=== PATIENT | female | born 1995 | race Two or more races ===

== ENCOUNTER 2016-12-17 17:28 | Emergency (ER) | payer BC ==
[2016-12-17 18:54] LABS: RBC URINE 4 /hpf (0-3); URINE BACTERIA OCC (<OCC); URINE BILIRUBIN NEGATIVE (NEGATIVE); URINE BLOOD NEGATIVE (NEGATIVE); URINE COLOR Yellow (YELLOW); URINE GLUCOSE (UA) NORMAL (Normal); URINE KETONE NEGATIVE (NEGATIVE); URINE LEUKOCYTE ESTERASE 1+ Leu/uL (Negative); URINE PROTEIN NEGATIVE (NEGATIVE); URINE UROBILINOGEN NORMAL mg/dL (0.2-1.0); WBC URINE 10 /hpf (0-5)
--- NOTE | 2016-12-17 19:10 | C.PDOC ---
History Of Present Illness 21 y/o female presents to the ED with complains of vaginal spotting yesterday and lower abdominal cramping today. Pt , LMP sometime in November, , at age 16. Denies fever, chills, vomiting, diarrhea or any other complaints. Time Seen by Provider: 12/17/16 18:00 Chief Complaint (Nursing): Female Genitourinary History Per: Patient History/Exam Limitations: no limitations Onset/Duration Of Symptoms: Hrs Current Symptoms Are (Timing): Still Present Severity: Mild Recent travel outside of the [place]: No Past Medical History Reviewed: Historical Data, Nursing Documentation, Vital Signs Vital Signs: Last Vital Signs Temp 98 F 12/17/16 20: Pulse 72 12/17/16 20:26 Resp 20 12/17/16 20:26 BP 128/72 12/17/16 20:26 Pulse Ox 98 12/17/16 20:26 Family History: States: Unknown Family Hx - Social History Hx Alcohol Use: No Hx Substance Use: No Review Of Systems Except As Marked, All Systems Reviewed And Found Negative. Constitutional: Negative for: Fever, Chills Gastrointestinal: Positive for: Abdominal Pain. Negative for: Nausea, Vomiting Genitourinary: Positive for: Vaginal Bleeding (spotting) Physical Exam - Physical Exam Appears: Non-toxic, No Acute Distress Skin: Warm, Dry, No Rash Head: Atraumatic, Normacephalic Neck: Normal ROM, Supple Chest: Symmetrical Cardiovascular: Rhythm Regular, No Murmur Respiratory: Normal Breath Sounds, No Rales, No Rhonchi, No Wheezing Gastrointestinal/Abdominal: Normal Exam, Soft, No Tenderness Extremity: Bilateral: Atraumatic Neurological/Psych: Oriented x3, Normal Speech ED Course And Treatment - Laboratory Results Lab Interpretation: Abnormal (BHCG 46.35, Urine with 10 WBC, small bacteria and 1+leukocyte esterase) O2 Sat by Pulse Oximetry: 99 (room air) Pulse Ox Interpretation: Normal - CT Scan/US Pelvic US Other Rad Studies (CT/US): Read By Radiologist, Radiology Report Reviewed CT/US Interpretation: IMPRESSION: No intrauterine . In light of positive hCG, consider serial hCG follow-up and repeat. ultrasound in one or 2 weeks for more definitive assessment. 2.5 cm right ovarian cyst. Progress Note: Plan: UA, beta-HCG, Pelvic US Reevaluation Time: 20:18 Reassessment Condition: Unchanged (Patient in no distress.) Disposition Counseled Patient/Family Regarding: Studies Performed, Diagnosis, Need For Followup - Disposition Disposition: HOME/ ROUTINE Disposition Time: 20:20 Condition: STABLE Additional Instructions: Follow up with your poly operator next week for repeat labs and ultrasound. Take the antibiotics they gave you for the urinary tract infection as prescribed. Instructions: Threatened Miscarriage (ED), Urinary Tract Infection in (ED) - Clinical Impression Clinical Impression: Threatened , UTI (urinary tract infection) in in first trimester - Scribe Statement The provider has reviewed the documentation as recorded by the Nino Estevez Provider Attestation: All medical record entries made by the Nino were at my direction and personally dictated by me. I have reviewed the chart and agree that the record accurately reflects my personal performance of the history, physical exam, medical decision making, and the department course for this patient. I have also personally directed, reviewed, and agree with the discharge instructions and disposition.
[2016-12-17 20:27] VITALS: BP 128/72; PULSE 72; RESP 20; TEMP 98
[2016-12-17 21:42] VITALS: O2SAT 99
--- NOTE | 2016-12-18 09:58 | US ---
Pelvic ultrasound History: . Vaginal bleeding. Comparison: None available. Technique: Real-time sonography was performed through the pelvis utilizing transabdominal and transvaginal techniques. Findings: Uterus: 7.0 x 3.9 x 4.5 centimeters. Anteverted. Heterogeneous echotexture. Endometrium: Thickened measuring up to 1.35 centimeters. No discrete intrauterine identified. Right ovary: 4.5 x 2.4 x 3.6 centimeters. Normal flow. Multiple hypoechoic cysts the largest of which measures up to 2.5 centimeters. Left ovary: 4.1 x 2.8 x 3.9 centimeters. Normal flow. Impression: No discrete intrauterine identified. In light of the positive HCG, HCG follow-up and repeat ultrasound in a 1 or 2 week interval for more definitive assessment may be helpful. In the setting of a positive test and lack of discrete intrauterine , these findings may include an early intrauterine versus missed versus ectopic . Clinical correlation. 2.5 centimeter right ovarian cyst. Thickened endometrium measuring up to 1.35 centimeters. These findings were preliminarily reported by Dr Min Parada from [facility] at 7:55 p.m. on 12/17/2016. Limited 1st trimester ultrasound for viability purposes only. Continued interval followup with serial ultrasound, serial HCG levels, and gynecological consultation would be helpful if clinically indicated.
== END 2016-12-17 20:26 | disposition home or self-care (01) ==
LOC: C.ER 17:28
DX: O20.0 Threatened abortion (principal); O23.41 Unspecified infection of urinary tract in pregnancy, first trimester; Z3A.00 Weeks of gestation of pregnancy not specified